=== PATIENT | male | born 1990 | race African-American/Black ===

== ENCOUNTER 2019-05-05 22:08 | Emergency (ER) | payer MEDICAID ==
--- NOTE | 2019-05-06 | ED Physician Chart ---
ED Chief Complaint/HPI - Patient Information Date Seen:: 05/05/19 Time Seen:: 23:00 Chief Complaint:: thumb jammed History of Present Illness:: just prior Allergies:: Allergies Allergy/AdvReac Type Severity Reaction Status Date / Time No Known Allergies Allergy Verified 05/05/19 22:27 Vitals:: Vital Signs - 8 hr 05/05/19 22:15 Temp 98.5 F HR 90 RR 18 BP 122/74 O2 Sat % 100 Historian:: Patient Review:: Nurse's Note Reviewed ED Review of Systems - Review of Systems General/Constitutional: No fever ED Past Medical History - Past Medical History Past Medical History: No significant medical hx Family Medical History - Family Member Mother History Unknown: Yes ED Physical Exam - Physical Examination General/Constitutional: Well-developed, well-nourished, Alert, GCS 15, Non- toxic appearing, Ambulatory (2/5 pain) Head: Atraumatic Eyes: Lids, conjuctiva normal (ganglion cyst dorsum hand) ENMT: External ears, nose nl Neck: Nontender Respiratory: Nl effort/Exclusion Cardio Vascular: RRR GI: No tenderness/rebounding/guarding Extremities: No tenderness or effusion (from 4/5 ganglion cyst xr no fx dislocation) Neuro/Psych: Alert/oriented ED Labs/Radiology/EKG Results - Lab Results Results: ligamental strain thumb ED Septic Shock - . Is Septic Shock (SBP<90, OR Lactate>4 mmol\L) present?: No - <6hrs of presentation: Vital Signs: Vital Signs - 8 hr 05/05/19 22:15 Temp 98.5 F HR 90 RR 18 BP 122/74 O2 Sat % 100 ED Reassessment (Disposition) - Reassessment Reassessment Condition:: Improved - Patient Disposition Discharge/Transfer:: Home (ice 48 aleve splint applied pmd need)
--- NOTE | 2019-05-06 10:03 | Diagnostic Imaging Report ---
Right thumb 3 views Indication: Fall and swelling Comparison: none Findings: There is a 2 mm calcific density seen along the volar aspect of the fifth interphalangeal joint. Mild surrounding soft tissue swelling is noted. Impression: 2 mm calcific density seen along the volar aspect of the fifth interphalangeal joint. Findings may be due to an avulsion fracture and may be due to ligamentous or tendinous injury. Please correlate clinically. Small foreign body is considered less likely. Recommend clinical correlation and follow-up. In the setting of trauma, if clinical symptoms persist and there is continued concern for an occult fracture, follow up exams in 5-7 days is suggested.
== END 2019-05-05 23:04 | disposition home or self-care (01) ==
LOC: ER 22:08
DX: S63.681A Other sprain of right thumb, initial encounter (principal); W23.0XXA Caught, crushed, jammed, or pinched between moving objects, initial encounter; Y93.89 Activity, other specified; Y92.89 Other specified places as the place of occurrence of the external cause; Y99.8 Other external cause status
CPT/HCPCS: 73140-TC-F5; Z7502